=== PATIENT | female | born 1975 | race Caucasian/White ===

== ENCOUNTER 2020-09-16 17:00 | Emergency (ER) | payer BC ==
--- NOTE | 2020-09-16 19:04 | EDM.PDOC ---
ED HPI GENERAL MEDICAL PROBLEM - General Chief Complaint: Abdominal Pain Stated Complaint: PAIN IN RIGHT ABDOMEN Time Seen by Provider: 09/16/20 19:00 Source of Information: Reports: Patient History Limitations: Reports: No Limitations - History of Present Illness INITIAL COMMENTS - FREE TEXT/NARRATIVE: pt is having pain in the rt lower abdoman. She has not been having regular bms. She is not vomiting. She has not been eating as muchh as usual. Onset: Gradual, Other ( She has been having some discomfort for abouit 3 weeks. ) Duration: Hour(s): Location: Reports: Abdomen Associated Symptoms: Reports: Other (pain in rt lower abdoman. ) Right Abdomen Pain Score (Numeric/FACES): 6 - Related Data Allergies Allergy/AdvReac Type Severity Reaction Status Date / Time latex Allergy Swelling Verified 09/16/20 18:33 Home Meds: Home Meds Azelaic Acid/Niacinamide [Acioxiay 15%-4% Cream] 1 applic TOP DAILY 09/16/20 [History] Cholecalciferol (Vitamin D3) [Vitamin D] 1 tab PO DAILY 09/16/20 [History] Ofatumumab [Kesimpta Pen] 0.4 ml SQ ASDIRECTED 09/16/20 [History] Past Medical History Gastrointestinal History: Reports: Cholelithiasis [employer] History: Reports: Musculoskeletal History: Reports: Other (See Below) Other Musculoskeletal History: MS - Past Surgical History GI Surgical History: Reports: Appendectomy Social & Family History - Tobacco Use Tobacco Use Status *Q: Never Tobacco User - Caffeine Use Caffeine Use: Reports: None - Recreational Drug Use Recreational Drug Use: No ED ROS GENERAL - Review of Systems Review Of Systems: See Below Constitutional: Reports: Fatigue, Decreased Appetite HEENT: Reports: No Symptoms Respiratory: Reports: No Symptoms Cardiovascular: Reports: No Symptoms Endocrine: Reports: No Symptoms GI/Abdominal: Reports: Abdominal Pain, Constipation, Decreased Appetite, Other (pt does have MS) Musculoskeletal: Reports: Hand Pain Skin: Reports: No Symptoms Neurological: Reports: No Symptoms Psychiatric: Reports: Anxiety ED EXAM, GI/ABD - Physical Exam Exam: See Below Text/Narrative:: pt arrived with pain in the rt abdoman. She has been very constipated. She has had mild nausea. She does have a 3 year history of MS. Exam Limited By: No Limitations General Appearance: Alert, Mild Distress Ears: Normal TMs Nose: Normal Inspection Throat/Mouth: Normal Inspection Head: Atraumatic Neck: Normal Inspection Respiratory/Chest: No Respiratory Distress Cardiovascular: Regular Rate, Rhythm GI/Abdominal Exam: Tender, Other (pt has tenderness without rebound on the rt side. ) (Female) Exam: Deferred Rectal (Female) Exam: Other (pt has no masses. She has no hard stool impaction. ) Back Exam: Normal Inspection Extremities: Normal Inspection Neurological: Alert, Oriented, Normal Cognition Psychiatric: Anxious Course - Vital Signs Last Recorded V/S: Last Vital Signs Temp 36.6 C 09/16/20 18:32 Pulse 74 09/16/20 19:49 Resp 14 09/16/20 19:49 BP 123/69 09/16/20 19:49 Pulse Ox 100 09/16/20 19:49 - Orders/Labs/Meds Orders: Active Orders 24 hr Category Date Time Status Iopamidol [Isovue-300 (61%)] Med 09/16/20 20:15 Active 100 ml IV . DIRECTED Sodium Chloride 0.9% [Normal Saline] 1,000 ml Med 09/16/20 20:00 Active IV ASDIRECTED Sodium Chloride 0.9% [Normal Saline] 70 ml Med 09/16/20 20:15 Active IV ASDIRECTED Medication Orders Sodium Chloride (Normal Saline) 1,000 mls @ 999 mls/hr IV ASDIRECTED RIA Sodium Chloride (Normal Saline) 70 mls @ 3.5 mls/sec IV ASDIRECTED RIA Last Admin: 09/16/20 20:35 Dose: 3 mls/sec Documented by: VISHAL Iopamidol (Iopamidol 612 Mg/Ml 100 Ml Bottle) 100 ml IV . DIRECTED RIA Last Admin: 09/16/20 20:34 Dose: 100 ml Documented by: VISHAL Labs: Laboratory Tests 09/16/20 09/16/20 09/16/20 Range/Units 19:12 19:12 19:18 WBC 5.1 (4.5-11.0) K/uL RBC 4.40 (3.30-5.50) M/uL Hgb 13.2 (12.0-15.0) g/dL Hct 38.1 (36.0-48.0) % MCV 87 (80-98) fL MCH 30 (27-31) pg MCHC 35 (32-36) % Plt Count 186 (150-400) K/uL Neut % (Auto) 72.1 H (36-66) % Lymph % (Auto) 19.1 L (24-44) % [place] % (Auto) 7.2 H (2-6) % Eos % (Auto) 1.2 L (2-4) % Baso % (Auto) 0.4 (0-1) % Sodium 141 (140-148) mmol/L Potassium 4.4 (3.6-5.2) mmol/L Chloride 103 (100-108) mmol/L Carbon Dioxide 27 (21-32) mmol/L Anion Gap 11.3 (5.0-14.0) mmol/L BUN 11 (7-18) mg/dL Creatinine 0.8 (0.6-1.0) mg/dL Est Cr Clr Drug Dosing 78.30 mL/min Estimated GFR (MDRD) > 60 (>60) Glucose 84 (74-106) mg/dL Calcium 8.5 (8.5-10.1) mg/dL Total Bilirubin 0.8 (0.2-1.0) mg/dL AST 11 L (15-37) U/L ALT 14 (12-78) U/L Alkaline Phosphatase 70 (46-116) U/L C-Reactive Protein < 0.05 (0.0-0.3) mg/dL Total Protein 6.2 L (6.4-8.2) g/dL Albumin 3.7 (3.4-5.0) g/dL Globulin 2.5 (2.3-3.5) g/dL Albumin/Globulin Ratio 1.5 (1.2-2.2) Urine Color (YELLOW) Urine Appearance (CLEAR) Urine pH (5.0-8.0) Ur Specific [place] (1.008-1.030) Urine Protein (NEGATIVE) mg/dL Urine Glucose (UA) (NEGATIVE) mg/dL Urine Ketones (NEGATIVE) mg/dL Urine Occult Blood (NEGATIVE) Urine Nitrite (NEGATIVE) Urine Bilirubin (NEGATIVE) Urine Urobilinogen (0.2-1.0) EU/dL Ur Leukocyte Esterase (NEGATIVE) Urine RBC (0-5) Urine WBC (0-5) Ur Epithelial Cells Amorphous Sediment Urine Bacteria Urine Mucus 07/12/21 Range/Units 19:27 WBC (4.5-11.0) K/uL RBC (3.30-5.50) M/uL Hgb (12.0-15.0) g/dL Hct (36.0-48.0) % MCV (80-98) fL MCH (27-31) pg MCHC (32-36) % Plt Count (150-400) K/uL Neut % (Auto) (36-66) % Lymph % (Auto) (24-44) % [place] % (Auto) (2-6) % Eos % (Auto) (2-4) % Baso % (Auto) (0-1) % Sodium (140-148) mmol/L Potassium (3.6-5.2) mmol/L Chloride (100-108) mmol/L Carbon Dioxide (21-32) mmol/L Anion Gap (5.0-14.0) mmol/L BUN (7-18) mg/dL Creatinine (0.6-1.0) mg/dL Est Cr Clr Drug Dosing mL/min Estimated GFR (MDRD) (>60) Glucose (74-106) mg/dL Calcium (8.5-10.1) mg/dL Total Bilirubin (0.2-1.0) mg/dL AST (15-37) U/L ALT (12-78) U/L Alkaline Phosphatase (46-116) U/L C-Reactive Protein (0.0-0.3) mg/dL Total Protein (6.4-8.2) g/dL Albumin (3.4-5.0) g/dL Globulin (2.3-3.5) g/dL Albumin/Globulin Ratio (1.2-2.2) Urine Color Yellow (YELLOW) Urine Appearance Slightly cloudy A (CLEAR) Urine pH 5.5 (5.0-8.0) Ur Specific [place] >= 1.030 (1.008-1.030) Urine Protein Negative (NEGATIVE) mg/dL Urine Glucose (UA) Negative (NEGATIVE) mg/dL Urine Ketones >=160 H (NEGATIVE) mg/dL Urine Occult Blood Negative (NEGATIVE) Urine Nitrite Negative (NEGATIVE) Urine Bilirubin Negative (NEGATIVE) Urine Urobilinogen 0.2 (0.2-1.0) EU/dL Ur Leukocyte Esterase Negative (NEGATIVE) Urine RBC 0-5 (0-5) Urine WBC 0-5 (0-5) Ur Epithelial Cells Rare Amorphous Sediment Rare Urine Bacteria Rare Urine Mucus Many Meds: Medications Generic Name Dose Route Start Last Admin Trade Name Freq PRN Reason Stop Dose Admin Sodium Chloride 1,000 mls @ 999 mls/hr 09/16/20 20:00 Normal Saline IV ASDIRECTED RIA Sodium Chloride 70 mls @ 3.5 mls/sec 09/16/20 20:15 09/16/20 20:35 Normal Saline IV 3 mls/sec ASDIRECTED RIA Administration Iopamidol 100 ml 09/16/20 20:15 09/16/20 20:34 Iopamidol 612 Mg/Ml 100 Ml Bottle IV 100 ml . DIRECTED RIA Administration Discontinued Medications Generic Name Dose Route Start Last Admin Trade Name Freq PRN Reason Stop Dose Admin Sodium Chloride 10 ml 09/16/20 20:05 09/16/20 20:34 Sodium Chloride 0.9% 10 Ml Syringe FLUSH 09/16/20 20:06 10 ml ONETIME ONE Administration Departure - Departure Time of Disposition: 22:09 Disposition: Home, Self-Care 01 Condition: Fair Clinical Impression: Ovarian cyst, Renal mass, Constipation - Discharge Information Referrals: PCP,None [Primary Care Provider] - Forms: ED Department Discharge Care Plan Goals: lite foods, push fluids, rtc if pain gets worse for a pelvic US. When pt sees regular Doctor she needs a dedicated renal cat scan, send a copy of the cat scan report, put the cat scan on disc, send a copy of the lab work. tomorrow drink a bottle of the mag citrate. norco 5/325 q6h prn for pain. Sepsis Event Note (ED) - Evaluation Sepsis Screening Result: No Definite Risk - Focused Exam Vital Signs: Vital Signs Temp Pulse Resp BP Pulse Ox 09/16/20 19:49 74 14 123/69 100 09/16/20 18:32 36.6 C 85 14 124/63 96 09/16/20 18:00 36.6 C 85 14 124/63 96 - My Orders Last 24 Hours: My Active Orders 09/16/20 20:00 Sodium Chloride 0.9% [Normal Saline] 1,000 ml IV ASDIRECTED 09/16/20 20:15 Iopamidol [Isovue-300 (61%)] 100 ml IV . DIRECTED Sodium Chloride 0.9% [Normal Saline] 70 ml IV ASDIRECTED - Assessment/Plan Last 24 Hours: My Active Orders 09/16/20 20:00 Sodium Chloride 0.9% [Normal Saline] 1,000 ml IV ASDIRECTED 09/16/20 20:15 Iopamidol [Isovue-300 (61%)] 100 ml IV . DIRECTED Sodium Chloride 0.9% [Normal Saline] 70 ml IV ASDIRECTED
[2020-09-16] MEDS ORDERED: Sodium Chloride 0.9% 1,000 ML IV SCH (20:00)
[2020-09-16] MEDS ORDERED: Sodium Chloride 0.9% 10 ML Syringe FLUSH ONE (20:05)
[2020-09-16] MEDS ORDERED: Iopamidol 612 MG/ML 100 ML Bottle IV SCH (20:15)
--- NOTE | 2020-09-16 21:47 | CRLCT ---
For Patients: As a result of the Century Cures Act, medical imaging exams and procedure reports are released immediately into your electronic medical record. You may view this report before your referring provider. If you have questions, please contact your health care provider. INDICATION: Right-sided abdominal pain TECHNIQUE: CT abdomen and pelvis acquired with 100 cc Isovue-300 IV contrast. COMPARISON: None None FINDINGS: Lower chest: Unremarkable. Liver: Innumerable hepatic cysts ranging in size from 2 mm to 2.8 cm. Spleen: Unremarkable. Pancreas: Unremarkable. Gallbladder and bile ducts: S/p cholecystectomy. Adrenal glands: Unremarkable. Kidneys: 2 hypodense lesions in the right kidney, each measuring 26 Hounsfield units in density. The largest lesion measures 1.2 cm diameter. GI tract: Unremarkable. Appendix is not clearly seen. Vascular structures: Unremarkable. Lymph nodes: Unremarkable. Pelvic Organs: Status post hysterectomy. 2.5 cm cystic lesion in the right adnexa. Trace free fluid in the pelvis. Bones: Unremarkable for age. IMPRESSION: The appendix is not clearly seen. 2.5 cm cystic lesion in the right adnexa. Consider pelvic ultrasound for further evaluation. Two indeterminate right renal lesions. Recommend nonemergent renal CT for further evaluation. Status post cholecystectomy and hysterectomy. Please note that all CT scans at this facility use dose modulation, iterative reconstruction, and/or weight-based dosing when appropriate to reduce radiation dose to as low as reasonably achievable. Dictated by Bernie Hernández MD @ 09/16/2020 9:46:[address] Bernie Hernández @ Sep 16 2020 9:46PM
== END 2020-09-16 22:44 | disposition home or self-care (01) ==
LOC: JP.ED 17:00
DX: N83.201 Unspecified ovarian cyst, right side (principal); K59.00 Constipation, unspecified; N28.89 Other specified disorders of kidney and ureter; Z91.040 Latex allergy status
CPT/HCPCS: 36415; 74177; 80053; 81001; 85025; 86140; 99284; Q9967